=== PATIENT | male | born 1960 | race American Indian/Alaskan Native ===

== ENCOUNTER 2018-03-02 10:24 | Emergency (ER) | payer SELFPAY | END 2018-03-02 11:53 | disposition home or self-care (01) | LOC: ER 10:24 | DX: M79.661 Pain in right lower leg (principal); M79.89 Other specified soft tissue disorders; E11.9 Type 2 diabetes mellitus without complications; I10 Essential (primary) hypertension; Z90.49 Acquired absence of other specified parts of digestive tract | CPT/HCPCS: 93971; 99284-25 ==